=== PATIENT | female | born 1965 | race Two or more races ===

== ENCOUNTER 2025-04-20 17:07 | Emergency (ER) | payer OTHER ==
[~2025-04-20] VITALS: Ht 165.1 cm; Wt 62.1 kg
[2025-04-20] MEDS ORDERED: FAMOTIDINE/PF 20 MG/2 ML VIAL IV ONE (19:15)
[2025-04-20] MEDS ORDERED: FAMOTIDINE/PF 20 MG/2 ML VIAL ONE (22:23)
[2025-04-20 23:22] LABS: BASO % 0.8 % (0.1-1.2); EOS # 0.19 (0.04-0.54); EOS % 3.8 % (0.7-7.0); LYMPH # 2.83 (1.18-3.74); LYMPH % 56.0 % (19.3-53.1); MEAN PLATELET VOLUME 11.00 fl (9.4-12.4); MONO # 0.46 (0.24-0.82); MONO % 9.1 % (4.7-12.5); NEUT # 1.53 (1.56-6.13); NEUT % 30.3 % (34.0-71.1); RED CELL DISTRIBUTION WIDTH 13.1 % (11.6-14.4)
[2025-04-20 23:57] LABS: ALT/SGPT 36.0 U/L (12-78); AST/SGOT 27.0 U/L (15-37); BILIRUBIN TOTAL 1.1 mg/dL (0.3-1.2); BUN CREA RATIO 15.0 (7.0-25.0); CREATININE SERUM 1.02 mg/dL (0.55-1.02); GFR 55.09; GLOBULINA 3.9 G/DL (2.4-3.5); GLUCOSE FASTING 85.0 mg/dL (65-100); OSMOLALITY SERUM 281.0 MOSM/KG (275-295)
[2025-04-21] MEDS ORDERED: PEPCID AC20 MG PO (00:07)
== END 2025-04-21 00:58 | disposition home or self-care (01) ==
LOC: ER 17:08
PROVIDERS: General Practice
DX: K29.70 Gastritis, unspecified, without bleeding (principal); Z87.09 Personal history of other diseases of the respiratory system